=== PATIENT | female | born 1955 | race Caucasian/White ===

== ENCOUNTER 2018-03-24 10:40 | Emergency (ER) | payer OTHER ==
[~2018-03-24] VITALS: Ht 170.2 cm; Wt 62.1 kg
[2018-03-24] MEDS ORDERED: SODIUM CHLORIDE 0.9% 1000ML 1,000 ML IV STA (10:46)
[2018-03-24] MEDS ORDERED: MORPHINE SULFATE INJ 4 MG/ML INJ IV NR (11:00)
[2018-03-24] MEDS ORDERED: ONDANSETRON HCL INJ 2 MG/ML VIAL IV NR (11:00)
[2018-03-24 11:21] LABS: BASOPHILS # (AUTO) 0.1 (0.0-0.1); BASOPHILS % 0.3 % (0.0-1.0); EOSINOPHILS % 0.1 % (0.0-6.0); HEMATOCRIT 45.3 % (34.2-44.1); HEMOGLOBIN 15.1 g/dL (12.0-16.0); LYMPHOCYTES # (AUTO) 2.1 (1.0-3.2); LYMPHOCYTES % 11.9 % (18.0-39.1); MEAN CORPUSCULAR HEMOGLOBIN 30.9 pg (28-32); MEAN CORPUSCULAR HGB CONC 33.3 g/dL (31-35); MEAN CORPUSCULAR VOLUME 92.8 fL (81-99); MONOCYTES % 5.4 % (4.4-11.3); NEUTROPHILS # (AUTO) 14.4 (2.1-6.9); NEUTROPHILS % 81.9 % (38.7-80.0); PLATELET COUNT 309 x10e3/uL (140-360); RED BLOOD COUNT 4.88 x10e6/uL (3.6-5.1); RED CELL DISTRIBUTION WIDTH 12.2 % (11.7-14.4)
[2018-03-24 11:41] LABS: ALANINE AMINOTRANSFERASE 16 IU/L (0-55); ALBUMIN/GLOBULIN RATIO 1.2 (0.8-2.0); ALKALINE PHOSPHATASE 57 IU/L (40-150); ANION GAP 15.3 mmol/L (8-16); BLOOD UREA NITROGEN 9 mg/dL (7-26); BUN/CREATININE RATIO 12 (6-25); CALCIUM 9.8 mg/dL (8.4-10.2); CARBON DIOXIDE 24 mmol/L (22-29); CHLORIDE 101 mmol/L (98-107); CREATINE KINASE 83 IU/L (29-168); CREATININE, SERUM 0.77 mg/dL (0.57-1.11); EST GLOMERULAR FILTRATION RATE > 60 ML/MIN (60-); GLUCOSE 97 mg/dL (74-118); LIPASE 12 U/L (8-78); POTASSIUM 4.3 mmol/L (3.5-5.1); SODIUM 136 mmol/L (136-145)
--- NOTE | 2018-03-24 13:59 | Diagnostic Imaging Report ---
EXAM: CT Abdomen and Pelvis WITH contrast INDICATION: ^abd pain ^[id number] ^1240 COMPARISON: None. TECHNIQUE: Abdomen and pelvis were scanned utilizing a multidetector helical scanner from the lung base to the pubic symphysis after administration of IV contrast. Coronal and sagittal reformations were obtained. Dose modulation, iterative reconstruction, and/or weight based adjustment of the mA/kV was utilized to reduce the radiation dose to as low as reasonably achievable. Routine protocol was performed. Scan was performed when during portal venous phase. IV CONTRAST: 100 mL of Isovue-370 ORAL CONTRAST: Water COMPLICATIONS: None RADIATION DOSE: Total DLP: 206.87 mGy*cm Estimated effective dose: (DLP x 0.015 x size factor) mSv CTDIvol has been reviewed. It is below the limits set by the Radiation Protocol Committee (RPC). FINDINGS: LINES and TUBES: None. LOWER THORAX: Mild right lung dependent atelectasis and right base linear atelectasis/scarring. There are also medial right middle lobe and lingular scarring with mild traction bronchiectasis. HEPATOBILIARY: Tiny right hepatic lobe segment 5 hypodensities are too small to characterize (series 2, image 29). No biliary ductal dilation. GALLBLADDER: No radio-opaque stones or sludge. No wall thickening. SPLEEN: No splenomegaly. PANCREAS: Atrophic No focal masses or ductal dilatation. ADRENALS: No adrenal nodules KIDNEYS/URETERS: Malrotated inferiorly displaced right kidney. Kidneys enhance symmetrically. No hydronephrosis. No cystic or solid mass lesions. No stones. GI TRACT: No abnormal distention, wall thickening, or evidence of bowel obstruction. Small hiatal hernia. Scattered colonic diverticula without evidence of diverticulitis. Appendix is distended up to 1.2 cm with surrounding inflammation (series 301, image 26). PELVIC ORGANS/BLADDER: Unremarkable. LYMPH NODES: No lymphadenopathy. VESSELS: There is moderate atherosclerotic disease in the tortuous abdominal aorta and major arterial branches. PERITONEUM / RETROPERITONEUM: No free air or fluid. BONES: Lumbar spine scoliosis with multilevel degenerative changes. SOFT TISSUES: Partially imaged questionable right breast implant. IMPRESSION: 1. Acute appendicitis. No evidence of perforation or abscess formation. Angelica Brantley was notified at 1:54 PM, on 03/24/2018. Signed by: Dr. Jarrett Suresh MD on 03/24/2018 1:55 PM
[2018-03-24] MEDS ORDERED: FENTANYL CITRATE/PF 100MCG/2 ML INJ ONE (14:07)
[2018-03-24] MEDS ORDERED: FENTANYL CITRATE/PF 100MCG/2 ML INJ IV ONE (14:15)
[2018-03-24] MEDS ORDERED: PIPER-TAZ 3.375 GM 50 ML IV ONE (14:15)
[2018-03-24] MEDS ORDERED: IOPAMIDOL 370 MG/ML 200 ML INFUS..BTL INJ ONE (17:46)
[2018-03-24] MEDS ORDERED: SODIUM CHLORIDE 0.9% 50ML 50 ML ONE (17:46)
== END 2018-03-24 15:45 | disposition other institution (70) ==
LOC: ER 10:40
DX: R10.31 Right lower quadrant pain (principal); R11.0 Nausea; K35.30 Acute appendicitis with localized peritonitis, without perforation or gangrene
CPT/HCPCS: 36415; 74177; 80053; 82550; 82553; 83690; 84484; 85025; 99284; J2270; J2405; J2543; J7030; Q9967

== ENCOUNTER 2018-04-07 14:09 | Emergency (ER) | payer OTHER ==
[~2018-04-07] VITALS: Ht 170.2 cm; Wt 62.1 kg
--- OUTSIDE RECORDS SUMMARY | 2018-04-07 14:12 | XMS REPORT ---
Author Author [facility] Address Unknown Phone Unavailable Care Team Providers Care Systems Requirements Planner Name Role Phone Basil PASCUAL Unavailable Unavailable Nallely MOONEY Unavailable Unavailable Problems This patient has no known problems. Allergies, Adverse Reactions, Alerts This patient has no known allergies or adverse reactions. Medications This patient has no known medications. Results Test Description Test Time Test Comments Text Results Atomic Results Result Comments BLOOD CULTURE 2018-04-03 20:38:00 CULTURE (BEAKER) (test ubbh=1933) No growth in 5 days TISSUE [id number] 14:38:00Surgical Pathology Report Case: [id number] Authorizing Provider: Enoc Tobin MD Collected: 03/25/2018 0747 Ordering Location: [address] Received: 03/26/2018 0801 Service Pathologist: Vito Araujo MD Specimen: Appendix APPENDIX, APPENDECTOMY:ACUTE APPENDICITIS WITH TRANSMURAL NECROSISACUTE SEROSITISINFLAMMATION AND NECROSIS EXTENDING TO RESECTION MARGIN Signing Pathologist Direct Phone Line: [phone] signed by Vito Araujo MD on 03/27/2018 at 2:38 [id number] appendicitis Appendix Specimen is received in formalin-filled container labeled with the patient's information and labeled "appendix" and consists of an appendectomy measuring 5.5 cm in length x up to 0.8 cm in diameter with a mesoappendix measuring 5 x 1.5 x 1 cm. The serosa is indurated with green exudate throughout. There is no rupture site.Ink code: Resection margin blue.The specimen is sectioned. The lumen is filled with brown thick fluid. No distinct masses are identified.Section code: A1, margin en face with tip bisected; A2, client services representative of appendix. CG/ew Performed.COMPREHENSIVE METABOLIC [id number] 06:44:00* Test Item Value Reference Range Comments TOTAL PROTEIN (BEAKER) (test awau=268) 6.3 gm/dL 6.0-8.3 ALBUMIN (BEAKER) (test xnaq=3501) 3.5 g/dL 3.5-5.0 ALKALINE PHOSPHATASE (BEAKER) (test meis=081) 48 U/L 40-150 BILIRUBIN TOTAL (BEAKER) (test oyou=263) 0.8 mg/dL 0.2-1.2 SODIUM (BEAKER) (test oimp=547) 136 meq/L 136-145 POTASSIUM (BEAKER) (test dqga=433) 3.7 meq/L 3.5-5.1 CHLORIDE (BEAKER) (test hxri=027) 106 meq/L 98-107 CO2 (BEAKER) (test llsf=804) 22 meq/L 22-29 BLOOD UREA NITROGEN (BEAKER) (test krni=844) 9 mg/dL 7-21 CREATININE (BEAKER) (test fmds=592) 0.65 mg/dL 0.57-1.25 GLUCOSE RANDOM (BEAKER) (test dqky=085) 88 mg/dL 70-105 CALCIUM (BEAKER) (test crlw=329) 8.8 mg/dL 8.4-10.2 AST (SGOT) (BEAKER) (test gyff=182) 17 U/L 5-34 ALT (SGPT) (BEAKER) (test cinr=185) 9 U/L 6-55 EGFR (BEAKER) (test bjvs=8990) mL/min/1.73 sq m INSUFFICIENT CLINICAL DATA TO CALCULATE ESTIMATED GFR. CBC (HEMOGRAM ONLY)2018-03-25 06:16:00* Test Item Value Reference Range Comments WHITE BLOOD CELL COUNT (BEAKER) (test bxth=935) 21.1 K/ L 3.5-10.5 RED BLOOD CELL COUNT (BEAKER) (test rwno=472) 4.26 M/ L 3.93-5.22 HEMOGLOBIN (BEAKER) (test xzye=809) 13.2 GM/DL 11.2-15.7 HEMATOCRIT (BEAKER) (test ycpo=228) 41.0 % 34.1-44.9 MEAN CORPUSCULAR VOLUME (BEAKER) (test wjwj=149) 96.2 fL 79.4-94.8 MEAN CORPUSCULAR HEMOGLOBIN (BEAKER) (test uvso=598) 31.0 pg 25.6-32.2 MEAN CORPUSCULAR HEMOGLOBIN CONC (BEAKER) (test fyna=940) 32.2 GM/DL 32.2-35.5 RED CELL DISTRIBUTION WIDTH (BEAKER) (test ngya=376) 12.6 % 11.7-14.4 PLATELET COUNT (BEAKER) (test kgfr=872) 224 K/CU MM 150-450 MEAN PLATELET VOLUME (BEAKER) (test beux=410) 9.2 fL 9.4-12.3 NUCLEATED RED BLOOD CELLS (BEAKER) (test xtcf=304) 0 /100 WBC 0-0 URINALYSIS WITH MICROSCOPIC IF [id number] 19:44:00* Test Item Value Reference Range Comments COLOR (BEAKER) (test ukwu=392) Light Yellow CLARITY (BEAKER) (test ifta=551) Clear SPECIFIC GRAVITY UA (BEAKER) (test yigh=505) 1.026 1.001-1.035 PH UA (BEAKER) (test oppb=445) 5.0 5.0-8.0 PROTEIN UA (BEAKER) (test ocdw=954) Negative Negative GLUCOSE UA (BEAKER) (test uney=010) Negative Negative KETONES UA (BEAKER) (test csxr=489) Trace Negative BILIRUBIN UA (BEAKER) (test acec=074) Negative Negative BLOOD UA (BEAKER) (test sdhz=460) Moderate Negative NITRITE UA (BEAKER) (test hahl=149) Negative Negative LEUKOCYTE ESTERASE UA (BEAKER) (test ttrn=916) Negative Negative UROBILINOGEN UA (BEAKER) (test xsgt=888) 0.2 mg/dL 0.2-1.0 SOURCE(BEAKER) (test hseq=7741) URINALYSIS [id number] 19:44:00* Test Item Value Reference Range Comments RBC UA (BEAKER) (test fqwj=735) < /HPF WBC UA (BEAKER) (test kccv=552) < /HPF SQUAMOUS EPITHELIAL (BEAKER) (test ufib=689) < /HPF COMPREHENSIVE METABOLIC [id number] 18:38:00* Test Item Value Reference Range Comments TOTAL PROTEIN (BEAKER) (test slzr=099) 6.9 gm/dL 6.0-8.3 ALBUMIN (BEAKER) (test gnme=4409) 4.0 g/dL 3.5-5.0 ALKALINE PHOSPHATASE (BEAKER) (test cysw=757) 55 U/L 40-150 BILIRUBIN TOTAL (BEAKER) (test kqvb=187) 0.8 mg/dL 0.2-1.2 SODIUM (BEAKER) (test igoi=895) 137 meq/L 136-145 POTASSIUM (BEAKER) (test yzab=908) 4.1 meq/L 3.5-5.1 CHLORIDE (BEAKER) (test rwzv=926) 105 meq/L 98-107 CO2 (BEAKER) (test yjof=230) 24 meq/L 22-29 BLOOD UREA NITROGEN (BEAKER) (test ivej=697) 8 mg/dL 7-21 CREATININE (BEAKER) (test rjzm=678) 0.71 mg/dL 0.57-1.25 GLUCOSE RANDOM (BEAKER) (test zdcj=222) 106 mg/dL 70-105 CALCIUM (BEAKER) (test dfzs=698) 9.2 mg/dL 8.4-10.2 AST (SGOT) (BEAKER) (test cjnd=630) 17 U/L 5-34 ALT (SGPT) (BEAKER) (test hkoy=398) 14 U/L 6-55 EGFR (BEAKER) (test yaax=2420) mL/min/1.73 sq m INSUFFICIENT CLINICAL DATA TO CALCULATE ESTIMATED GFR. PROTHROMBIN TIME/[id number] 18:34:00* Test Item Value Reference Range Comments PROTIME (BEAKER) (test leqk=919) 14.9 seconds 11.7-14.7 INR (BEAKER) (test tdes=449) 1.2 <=5.9 RECOMMENDED COUMADIN/WARFARIN INR THERAPY RANGESSTANDARD DOSE: 2.0 - 3.0 Inclu jaime: PROPHYLAXIS for venous thrombosis, systemic embolization; TREATMENT for luz ous thrombosis and/or pulmonary embolus.HIGH RISK: Target INR is 2.5-3.5 for pat ients with mechanical heart valves.[id number] 18:34:00* Test Item Value Reference Range Comments PARTIAL THROMBOPLASTIN TIME (BEAKER) (test wuqz=729) 30.5 seconds 22.5-36.0 CBC W/PLT COUNT & AUTO [id number] 18:20:00* Test Item Value Reference Range Comments WHITE BLOOD CELL COUNT (BEAKER) (test wzkl=968) 17.3 K/ L 3.5-10.5 RED BLOOD CELL COUNT (BEAKER) (test agxm=968) 4.59 M/ L 3.93-5.22 HEMOGLOBIN (BEAKER) (test sdfe=644) 14.3 GM/DL 11.2-15.7 HEMATOCRIT (BEAKER) (test oqpk=247) 43.5 % 34.1-44.9 MEAN CORPUSCULAR VOLUME (BEAKER) (test pnzc=286) 94.8 fL 79.4-94.8 MEAN CORPUSCULAR HEMOGLOBIN (BEAKER) (test awdw=905) 31.2 pg 25.6-32.2 MEAN CORPUSCULAR HEMOGLOBIN CONC (BEAKER) (test uhnx=448) 32.9 GM/DL 32.2-35.5 RED CELL DISTRIBUTION WIDTH (BEAKER) (test rcrf=567) 12.4 % 11.7-14.4 PLATELET COUNT (BEAKER) (test ggho=816) 250 K/CU MM 150-450 MEAN PLATELET VOLUME (BEAKER) (test ppfy=614) 9.2 fL 9.4-12.3 NUCLEATED RED BLOOD CELLS (BEAKER) (test pjay=896) 0 /100 WBC 0-0 NEUTROPHILS RELATIVE PERCENT (BEAKER) (test ytdy=164) 88 % LYMPHOCYTES RELATIVE PERCENT (BEAKER) (test aosw=527) 7 % MONOCYTES RELATIVE PERCENT (BEAKER) (test nlet=460) 5 % EOSINOPHILS RELATIVE PERCENT (BEAKER) (test qmpi=195) 0 % BASOPHILS RELATIVE PERCENT (BEAKER) (test rkwd=291) 0 % NEUTROPHILS ABSOLUTE COUNT (BEAKER) (test rogv=434) 15.14 K/ L 1.56-6.13 LYMPHOCYTES ABSOLUTE COUNT (BEAKER) (test weth=271) 1.16 K/ L 1.18-3.74 MONOCYTES ABSOLUTE COUNT (BEAKER) (test odci=533) 0.79 K/ L 0.24-0.36 EOSINOPHILS ABSOLUTE COUNT (BEAKER) (test ptht=297) 0.01 K/ L 0.04-0.36 BASOPHILS ABSOLUTE COUNT (BEAKER) (test ozdi=495) 0.04 K/ L 0.01-0.08 IMMATURE GRANULOCYTES-RELATIVE PERCENT (BEAKER) (test jmlv=9532) 1 % 0-1 CT ABDOMEN/PELVIS [id number] 13:40:00 [place] [id number] [place] [id number] Patient Name: LESLI VILLASENOR MR #: [id number] : 1955 Age/Sex: 62/F Req #: [id number] Adm Physician: Ordered by: ANDREW MOONEY MD Report #: [id number] Location: ER Room/Bed: Procedure: [id number] CT/C T ABDOMEN/PELVIS W Exam Date: 03/24/18 Exam Time: REPORT STATUS: Signed EXAM: C T Abdomen and Pelvis WITH contrast INDICATION: abd pain [id number] 1240 COMPARISON: None. TECHNIQUE: Abdomen and pelvis were scanned utili [employer] a multidetector helical scanner from the lung base to the pubic symphysis after administration of IV contrast. Coronal and sagittal reformations were o btained. Dose modulation, iterative reconstruction, and/or weight based adjust ment of the mA/kV was utilized to reduce the radiation dose to as low as reaso nably achievable. Routine protocol was performed. Scan was performed when duri ng portal venous phase. IV CONTRAST: 100 mL of Isovue-370 OR AL CONTRAST: Water COMPLICATIONS: None RADIATION DOSE: Total DLP: 206.87 mGy*cm Estimated effective dose: (DLP x 0.015 x size factor) mSv CTDIvol has been reviewed. It is below the limits set by the Radiation Protocol Committee (RPC). FINDINGS: LINES and TUBES: None. LOWER THORAX: Mild right lung dependent atelectasis and right base linear atelectasis/scarring. There are also medial right middle lobe and lingular scarring with mild traction bronchiectasis. HEPATOBILIARY: Tiny right hepatic lobe segment 5 hypodensities are too small to characterize (series 2, image 29). No biliary ductal dilation. GALLBLADDER: No radio-opaque stones or sludge. No wall thickening. SPLEEN: No splenomegaly. PANCREAS: Atrophic No focal masses or ductal dilatation. ADRENALS: No adrenal nodu les KIDNEYS/URETERS: Malrotated inferiorly displaced right kidney. Kidn eys enhance symmetrically. No hydronephrosis. No cystic or solid mass lesions . No stones. GI TRACT: No abnormal distention, wall thickening, or evidenc e of bowel obstruction. Small hiatal hernia. Scattered colonic diverticula w ithout evidence of diverticulitis. Appendix is distended up to 1.2 cm with jhonathan rounding inflammation (series 301, image 26). PELVIC ORGANS/BLADDER: Unre markable. LYMPH NODES: No lymphadenopathy. VESSELS: There is moderate atherosclerotic disease in the tortuous abdominal aorta and major arterial bra nches. PERITONEUM / RETROPERITONEUM: No free air or fluid. BONES: Lumb ar spine scoliosis with multilevel degenerative changes. SOFT TISSUES: Part ially imaged questionable right breast implant. IMPRESSION: 1. Acute appendicitis. No evidence of perforation or abscess formation. Gaurav.Dereck Brantley was notified at 1:54 PM, on 03/24/2018. Signed by: Dr. Jarrett vazquez MD on 03/24/2018 1:55 PM Dictated By: JARRETT CHO MD Electronica lly Signed By: JARRETT CHO MD on 03/24/18 2637 Transcribed By: KONSTANTIN on 05/11 1351 COPY TO: ANDREW MOONEY MD
--- OUTSIDE RECORDS SUMMARY | 2018-04-07 14:12 | XMS REPORT | Clinical Summary ---
Author Author [facility] Address Unknown Phone Unavailable Care Team Providers Care Proof Coin Collector Name Role Phone Manish Arrington MD PCP Allergies Comments Active Allergy Reactions Severity Noted Date Cefaclor (Bulk) Rash Low 03/24/2018 Medications End Date Status Medication Sig Dispensed Refills Start Date 03/20/2019 Active acetaminophen (TYLENOL) Take 2 30 tablet 0 325 MG tablet tablets (650 8 mg total) by mouth every 6 (six) hours as needed for up to 360 days. 04/04/2018 traMADol (ULTRAM) 50 mg Take 1 tablet 30 tablet 0 tablet (50 mg total) 8 by mouth every 6 (six) hours as needed for up to 10 days. Max Daily Amount: 200 mg 04/01/2018 ciprofloxacin HCl (CIPRO) Take 1 tablet 14 tablet 0 500 MG tablet (500 mg 8 total) by mouth 2 (two) times daily for 7 days. 04/01/2018 metroNIDAZOLE (FLAGYL) Take 1 tablet 21 tablet 0 500 MG tablet (500 mg 8 total) by mouth 3 (three) times daily for 7 days. 04/01/2018 ondansetron (ZOFRAN) 4 MG Take 1 tablet 20 tablet 0 tablet (4 mg total) 8 by mouth every 8 (eight) hours as needed for Nausea for up to 7 days. Active Problems Problem Noted Date Acute appendicitis 03/24/2018 Encounters Care Team Description Date Type Specialty Jose Conn MD 03/25/2018 Anesthesia Event Enoc Tobin MD LAPAROSCOPY,APPENDECTOMY 03/25/2018 Surgery Kristie Aponte MD Zindani, Shireen, MD Acute appendicitis, unspecified acute appendicitis type (Primary Dx) 03/24/2018 [facility] Internal Medicine - Encounter 03/25/2018 after 04/06/2017 Social History Date Tobacco Use Types Packs/Day Years Used Current Every Day Smoker Cigarettes 0.5 40 Alcohol Use Drinks/Week oz/Week Comments Yes Alcohol Habits Answer Date Recorded How often do you have a drink containing alcohol? 2-4 times a month 03/24/2018 How many drinks containing alcohol do you have on Not asked a typical day when you are drinking? How often do you have six or more drinks on one Not asked occasion? Sex Assigned at Date Recorded Not on file Industry Job Start Date Occupation Not on file Not on file Not on file Travel End Travel History Travel Start No recent travel history available. Last Filed Vital Signs Time Taken Vital Sign Reading 03/25/2018 5:17 PM [facility] Blood Pressure 102/63 03/25/2018 5:17 PM [facility] Pulse 71 03/25/2018 5:17 PM [facility] Temperature 36.4 C (97.5 F) 03/25/2018 5:17 PM [facility] Respiratory Rate 20 03/25/2018 5:17 PM [facility] Oxygen Saturation 95% - Inhaled Oxygen - Concentration - Weight - - Height - - Body Mass Index - Plan of Treatment Not on file Procedures Comments Procedure Name Priority Date/Time Associated Diagnosis RHYTHM STRIP - SCAN 03/29/2018 2:50 PM [facility] TRANSFUSION SERVICE 03/25/2018 REPORT - SCAN 6:00 PM [facility] LAPAROSCOPY,APPENDECTOMY 03/25/2018 Acute appendicitis, 8:00 AM [facility] unspecified acute appendicitis type TISSUE EXAM AP Routine 03/25/2018 7:47 AM [facility] COMPREHENSIVE METABOLIC Routine 03/25/2018 PANEL 5:30 AM [facility] CBC (HEMOGRAM ONLY) Routine 03/25/2018 5:30 AM [facility] URINALYSIS MICROSCOPIC Routine 03/24/2018 7:00 PM [facility] URINALYSIS WITH Routine 03/24/2018 MICROSCOPIC IF INDICATED 7:00 PM [facility] BLOOD CULTURE Routine 03/24/2018 7:00 PM [facility] CBC W/PLT COUNT & AUTO Routine 03/24/2018 DIFFERENTIAL 5:56 PM [facility] TYPE AND SCREEN, STAT 03/24/2018 AUTOMATED 5:56 PM [facility] APTT STAT 03/24/2018 5:56 PM [facility] PROTHROMBIN TIME/INR STAT 03/24/2018 5:56 PM [facility] COMPREHENSIVE METABOLIC Routine 03/24/2018 PANEL 5:56 PM [facility] CBC W/PLT COUNT & AUTO Routine 03/24/2018 DIFFERENTIAL 5:56 PM [facility] after 04/06/2017 Results * RHYTHM STRIP - SCAN (03/29/2018 2:50 PM [facility]) Narrative Performed At * TRANSFUSION SERVICE REPORT - SCAN (03/25/2018 6:00 PM [facility]) Narrative Performed At * Tissue Exam (03/25/2018 7:47 AM [facility]) Case Report Surgical Pathology [facility] Report [facility] Case: [id number] Authorizing Provider:Enoc Tobin MDCollected: 03/25/2018 0747 Ordering Location: [address] Received: 03/26/2018 0801 Service Pathologist: Vito Araujo MD Specimen:Appendix DIAGNOSIS APPENDIX, APPENDECTOMY: [facility] ACUTE APPENDICITIS WITH [facility] TRANSMURAL NECROSIS ACUTE SEROSITIS INFLAMMATION AND NECROSIS EXTENDING TO RESECTION MARGIN Signing Pathologist Direct Phone Line: [phone] CPT Code(s) 25412 [facility] CLINICAL HISTORY Acute appendicitis [facility] SPECIMEN SOURCE Appendix [facility] GROSS DESCRIPTION Specimen is received in [facility] formalin-filled container [facility] labeled with the patient's information and labeled "appendix" and consists of an appendectomy measuring 5.5 cm in length x up to 0.8 cm in diameter with a mesoappendix measuring 5 x 1.5 x 1 cm. The serosa is indurated with green exudate throughout. There is no rupture site. Ink code: Resection margin blue. The specimen is sectioned. The lumen is filled with brown thick fluid. No distinct masses are identified. Section code: A1, margin en face with tip bisected; A2, hvac sales representative of appendix. CG/ew MICROSCOPIC DESCRIPTION Performed. [facility] Specimen Tissue - Appendix Performing Organization Address City/[facility] Hospital[facility] Phone Number [facility] [address] [place] [address] [facility] * CBC (Hemogram only) (03/25/2018 5:30 AM [facility]) WBC 21.1 (H) 3.5 - 10.5 K/L [facility] RBC 4.26 3.93 - 5.22 M/L [facility] Hemoglobin 13.2 11.2 - 15.7 GM/DL [facility] Hematocrit 41.0 34.1 - 44.9 % [facility] MCV 96.2 (H) 79.4 - 94.8 fL [facility] MCH 31.0 25.6 - 32.2 pg [facility] MCHC 32.2 32.2 - 35.5 GM/DL [facility] RDW 12.6 11.7 - 14.4 % [facility] Platelets 224 150 - 450 K/CU MM [facility] MPV 9.2 (L) 9.4 - 12.3 fL [facility] nRBC 0 0 - 0 /100 WBC [facility] Specimen Blood - Arm, Right Performing Organization Address City/[facility]/Zipcode Phone Number [facility] [address] [place] [address] [facility] * Comprehensive metabolic panel (03/25/2018 5:30 AM [facility]) Only the most recent of 2 results within the time period is included. Protein, Total 6.3 6.0 - 8.3 gm/dL [facility] Albumin 3.5 3.5 - 5.0 g/dL [facility] Alkaline Phosphatase 48 40 - 150 U/L [facility] Total Bilirubin 0.8 0.2 - 1.2 mg/dL [facility] Sodium 136 136 - 145 meq/L [facility] Potassium 3.7 3.5 - 5.1 meq/L [facility] Chloride 106 98 - 107 meq/L [facility] CO2 22 22 - 29 meq/L [facility] BUN 9 7 - 21 mg/dL [facility] Creatinine 0.65 0.57 - 1.25 mg/dL [facility] Glucose 88 70 - 105 mg/dL [facility] Calcium 8.8 8.4 - 10.2 mg/dL [facility] AST 17 5 - 34 U/L [facility] ALT 9 6 - 55 U/L [facility] EGFR Comment: INSUFFICIENT CLINICAL mL/min/1.[address] [facility] DATA TO CALCULATE ESTIMATED [facility] GFR. Specimen Blood - Arm, Right Performing Organization Address City/[facility] Hospitalcode Phone Number [place] [phone] * Urinalysis Microscopic Only (03/24/2018 7:00 PM [facility]) RBC, UA <1 /HPF [facility] WBC, UA <1 /HPF [facility] Squam Epithel, UA <1 /HPF [facility] Specimen Urine Performing Organization Address City/[facility]/Zipcode Phone Number [address] [address] [facility] * Urinalysis with Microscopic If Indicated (03/24/2018 7:00 PM [facility]) Color, UA Light Yellow [facility] Clarity, UA Clear [facility] Specific [place], UA 1.026 1.001 - 1.035 [facility] pH, UA 5.0 5.0 - 8.0 [facility] Protein, UA Negative Negative [facility] Glucose, UA Negative Negative [facility] Ketones, UA Trace (A) Negative [facility] Bilirubin, UA Negative Negative [facility] Blood, UA Moderate (A) Negative [facility] Nitrite, UA Negative Negative [facility] Leukocytes, UA Negative Negative [facility] Urobilinogen, UA 0.2 0.2 - 1.0 mg/dL [facility] Specimen Source [facility] Specimen Urine Performing Organization Address City/[facility] Hospitalcode Phone Number [address] * Blood culture (03/24/2018 7:00 PM [facility]) Result No growth in 5 days [facility] Specimen Blood Performing Organization Address [facility] Hospitalcosd Phone Number [address] * Type and screen, automated (03/24/2018 5:56 PM [facility]) ABO/RH AUTOMATED (BEAKER) O POSITIVE [facility] Ab Scrn NEGATIVE [facility] Specimen Blood Performing Organization Address [facility] Hospitalcode Phone Number [address] * CBC with platelet count + automated diff (03/24/2018 5:56 PM [facility]) WBC 17.3 (H) 3.5 - 10.5 K/L [facility] RBC 4.59 3.93 - 5.22 M/L [facility] Hemoglobin 14.3 11.2 - 15.7 GM/DL [facility] Hematocrit 43.5 34.1 - 44.9 % [facility] MCV 94.8 79.4 - 94.8 fL [facility] MCH 31.2 25.6 - 32.2 pg [facility] MCHC 32.9 32.2 - 35.5 GM/DL [facility] RDW 12.4 11.7 - 14.4 % [facility] Platelets 250 150 - 450 K/CU MM [facility] MPV 9.2 (L) 9.4 - 12.3 fL [facility] nRBC 0 0 - 0 /100 WBC [facility] % Neutros 88 % [facility] % Lymphs 7 % [facility] % Monos 5 % [facility] % Eos 0 % [facility] % Baso 0 % [facility] # Neutros 15.14 (H) 1.56 - 6.13 K/L [facility] # Lymphs 1.16 (L) 1.18 - 3.74 K/L [facility] # Monos 0.79 (H) 0.24 - 0.36 K/L [facility] # Eos 0.01 (L) 0.04 - 0.36 K/L [facility] # Baso 0.04 0.01 - 0.08 K/L [facility] Immature 1 0 - 1 % [facility] Granulocytes-[facility] CENTER Specimen Blood Performing Organization Address City/State/Zipcode Phone Number [facility] [address] [place] [address] [facility] * aPTT (03/24/2018 5:56 PM [facility]) PTT 30.5 22.5 - 36.0 seconds [facility] Specimen Blood Performing Organization Address City/[facility]/Zipcode Phone Number [facility] [address] [place] [address] [facility] * Prothrombin time/INR (03/24/2018 5:56 PM [facility]) Protime 14.9 (H) 11.7 - 14.7 seconds [facility] INR 1.2 <=5.9 [facility] Specimen Blood Narrative Performed At RECOMMENDED COUMADIN/WARFARIN INR THERAPY RANGES [facility] STANDARD DOSE: 2.0 - 3.0 Includes: PROPHYLAXIS for venous thrombosis, [facility] systemic embolization; TREATMENT for venous thrombosis and/or pulmonary embolus. HIGH RISK: Target INR is 2.5-3.5 for patients with mechanical heart valves. Performing Organization Address City/[facility] Hospitalcode Phone Number [facility] [address] [place] [address] [facility] after 04/06/2017 Insurance Payer Benefit Subscriber ID Type Phone Address Plan / Group AudioTag xxxxxxxxx [employer] E EXCHANGE
[2018-04-07 15:59] LABS: ANION GAP 17.1 mmol/L (8-16); BLOOD UREA NITROGEN 13 mg/dL (7-26); BUN/CREATININE RATIO 22 (6-25); CALCIUM 9.9 mg/dL (8.4-10.2); CARBON DIOXIDE 22 mmol/L (22-29); CHLORIDE 104 mmol/L (98-107); CREATININE, SERUM 0.59 mg/dL (0.57-1.11); EST GLOMERULAR FILTRATION RATE > 60 ML/MIN (60-); GLUCOSE 95 mg/dL (74-118); POTASSIUM 4.1 mmol/L (3.5-5.1); SODIUM 139 mmol/L (136-145)
[2018-04-07 16:14] VITALS: BP 143/92
== END 2018-04-07 16:10 | disposition home or self-care (01) ==
LOC: ER 14:09
DX: Z03.89 Encounter for observation for other suspected diseases and conditions ruled out (principal); F17.210 Nicotine dependence, cigarettes, uncomplicated
CPT/HCPCS: 36415; 80048; 93005; 99282

== ENCOUNTER → 2020-04-23 | Outpatient (CLI) | payer OTHER ==
[~2020-04-23] MED LIST: COVID-19 VACC, MRNA(MODERNA)/PF 100 MCG/0.5 ML VIAL IM ONE
== END ==
LOC: VACCPMC 17:00
DX: Z23 Encounter for immunization (principal); Z20.828 Contact with and (suspected) exposure to other viral communicable diseases

== ENCOUNTER → 2020-05-25 | Outpatient (CLI) | payer OTHER | LOC: VACCPMC 08:14 | DX: Z23 Encounter for immunization (principal); Z20.822 Contact with and (suspected) exposure to COVID-19 | CPT/HCPCS: 0012A; 91301 ==